=== PATIENT | male | born 1975 | race Caucasian/White ===

== ENCOUNTER 2017-07-28 08:17 | Emergency (ER) | payer OTHER ==
[~2017-07-28] VITALS: Ht 180.3 cm; Wt 113.4 kg
[2017-07-28] MEDS ORDERED: MEDROLPACK PO (10:28)
[2017-07-28] MEDS ORDERED: DICLOFENAC SODI75 MG PO (10:28)
== END 2017-07-28 10:43 | disposition home or self-care (01) ==
LOC: ER 08:17
DX: M54.6 Pain in thoracic spine (principal)